=== PATIENT | male | born 2000 | race Caucasian/White ===

== ENCOUNTER 2022-01-12 06:43 | Day surgery (SDC) | payer OTHER, SELFPAY ==
[2022-01-12] VITALS (14 sets, daily range): BP systolic 98–126; BP diastolic 54–82; PULSE 56–83; RESP 12–20; TEMP 36.2–36.6; O2SAT 96–100; BMI 20.4
[2022-01-12] MEDS: LACTATED RINGERS 1000 ML 1,000 ML 100 ML IV (07:00)
[2022-01-12] MEDS: SODIUM CHLORIDE 0.9 % (FLUSH) 10 ML SYRINGE IVF (07:15)
[2022-01-12] MEDS: CEFAZOLIN 2 GM INJ IVP (08:10)
--- NOTE | 2022-01-12 09:21 | PM.GSPRC ---
Operative Note Date of procedure: 01/12/22 Type of Procedure: laparoscopic left inguinal hernia repair Procedure Description: After discussing the risks and benefits of the procedure, the patient signed informed consent.? The operative site was marked and the patient was brought to the operating room and placed on the operating table in supine position.? Care was taken to pad the patient's pressure points.?? The patient was thenintubated] by anesthesia.?? The operative site was then prepped and draped in the usual sterile fashion.? A time-out was then performed. A curvilinear incision was made below the umbilicus. Dissection was carried down to subcutaneous tissue until the anterior rectus fascia was encountered. This was incised off the midline. The rectus muscles were then retracted exposing the posterior fascia. A space maker port with a dissecting balloon was then introduced. The preperitoneal space was inflated under direct vision. The balloon was then removed and the preperitoneal space insufflated. A 10 mm 30 degree scope was then advanced and the area was surveyed for bleeding. Dissection began on the Leftside. Marco Antonio's ligament and the pubic bone was exposed medially. Following this dissection was carried out laterally. An indirect defect was noted. The sac was dissected free from the cord structures using a combination of sharp and blunt dissection. Once the sac was completely reduced, a piece of Parietex mesh for the appropriate side was placed into the abdomen. This was positioned over the cord structures. A Tacker was used to attach the mesh medially at Marco Antonio's ligament. A single tack was placed laterally, taking care not to injure the epigastric vessels. Once this was completed the sac was placed on top of the mesh and the preperitoneal space desufflated under direct vision. The ports were removed. The fascia from the infraumbilical port was closed with 0 Vicryl. The skin incisions were closed with absorbable subcuticular suture. Sterile dressings were then applied. The scrotum was examined to ensure that both testicles were down. Instrument sponge and needle counts were correct at the end of the case. ? The patient was then woken and transported to the recovery area in stable condition. ? The patient tolerated the procedure well. Findings: Indirect left inguinal hernia. Anesthesia: GETA Surgeon: Ailyn Merida MD Estimated blood loss (mL): 5 Condition: stable Disposition: same day
--- NOTE | 2022-01-12 09:41 | W.ANESCHARGE ---
Anesthesia Charges Start Date/Time Anesthesia Start Date: 01/12/22 Anesthesia Start Time: 08:03 Stop Date/Time Anesthesia Stop Date: 01/12/22 Anesthesia Stop Time: 09:40 Summary Emergency: No
[2022-01-12] MEDS: KETOROLAC 15 MG/ML inj IVP (09:54)
--- NOTE | 2022-01-12 10:21 | W.ANESCHARGE ---
Anesthesia Charges Start Date/Time Anesthesia Start Date: 01/12/22 Anesthesia Start Time: 08:03 Stop Date/Time Anesthesia Stop Date: 01/12/22 Anesthesia Stop Time: 09:40 Summary Emergency: No
[2022-01-12] MEDS: OXYCODONE 5 MG TABLET PO (10:50)
== END 2022-01-12 12:10 | disposition home or self-care (01) ==
PROVIDERS: Visit Provider Surgery
PROC: (CPT 49650; principal; 2022-01-12 08:00)
DX: K40.90 Unilateral inguinal hernia, without obstruction or gangrene, not specified as recurrent (principal)
CPT/HCPCS: 49650; 00830; 00860; A9270; C1781; J0690; J1100; J1170; J1885; J2250; J2405; J2704; J3010; J7120